=== PATIENT | female | born 1990 | race African-American/Black ===

== ENCOUNTER 2016-05-12 10:41 | Emergency (ER) | payer OTHER ==
[~2016-05-12] VITALS: Ht 160 cm; Wt 68.0 kg
[2016-05-12] MEDS ORDERED: ACETAMINOPHEN 325MG TABLET PO ONE (11:45)
[2016-05-12 11:46] VITALS: BP 130/64
[2016-05-12 11:47] LABS: EOSINOPHILS % 1.2 % (0.0-5.0); HEMATOCRIT. 36.3 % (36.0-48.0); HEMOGLOBIN. 12.2 g/dL (12.0-16.0); MEAN CORPUSCULAR HEMOGLOBIN 29.6 pg (28.0-32.0); MEAN CORPUSCULAR HGB CONC 33.6 g/dL (31.0-37.0); MEAN PLATELET VOLUME 9.6 fl (7.4-10.4); NEUTROPHILS % 65.8 % (40.0-76.0); PLATELET 175 x1000/uL (130-400); RED BLOOD CELL COUNT 4.13 mill/uL (4.2-5.4); RED CELL DISTRIBUTION WIDTH 12.8 % (11.6-14.6)
[2016-05-12 11:52] LABS: CHLORIDE 110 mEq/L (98-107); INDEX HEMOLYSI 1 (1-3); INDEX ICTERIC 1 (1-4); INDEX LIPEMIC 1 (1-3)
[2016-05-12 12:01] LABS: ANION GAP 9; CALCIUM 8.6 mg/dL (8.5-10.1); CARBON DIOXIDE 27 mEq/L (21-32); UREA NITROGEN BLOOD 7 mg/dL (7-21); eGFR > 60 mL/min (>60)
[2016-05-12 12:02] LABS: B-HCG QUANTITATIVE 91 mIU/mL (<3)
== END 2016-05-12 13:47 | disposition left against medical advice (07) ==
LOC: ER 12:39
DX: O20.0 Threatened abortion (principal); Z3A.01 Less than 8 weeks gestation of pregnancy
CPT/HCPCS: 36415; 76801; 80048; 84702; 85025; 86850; 86900; 99285